=== PATIENT | female | born 1940 | race African-American/Black ===

== ENCOUNTER 2020-12-25 23:45 | Inpatient (IN) ==
[2020-12-26] MEDS ORDERED: 0.9 % Sodium Chloride 1,000 ML IVC ONE ×2 (00:13→03:48)
[2020-12-26 00:43] LABS: Basophils % 0.3 %; Eosinophils # 0.1 K/mcL (0.0-0.6); Eosinophils % 0.6 %; Hematocrit 37.2 % (35.3-44.9); Immature Granulocytes % 0.5 % (0-4); Lymphocytes # 1.7 K/mcL (0.6-4.6); Lymphocytes % 12.6 %; Mean Corpuscular HGB Conc 32.3 g/dL (31.6-35.5); Mean Corpuscular Hemoglobin 25.5 pg (28.0-33.3); Monocytes # 0.6 K/mcL (0.0-1.3); Monocytes % 4.8 %; Neutrophils # 10.8 K/mcL (1.6-8.9); Platelet Count 317 K/mcL (140-400); Red Blood Count 4.71 M/mcL (3.82-4.97); Red Cell Distribution Width 15.9 % (11.5-14.5); Segmented Neutrophils % 81.2 %; White Blood Count 13.3 K/mcL (4.3-11.1)
[2020-12-26 00:53] LABS: INR 1.5; Prothrombin Time 16.8 Seconds (9.4-12.1)
[2020-12-26 00:55] LABS: Activated Partial Thrombo Time 25.6 Seconds (26.0-36.0)
[2020-12-26 01:14] LABS: Albumin 3.3 g/dL (3.5-5.7); Albumin/Globulin Ratio 0.8 (1.1-2.2); Bilirubin,Direct 0.3 mg/dL (0.0-0.2); Bilirubin,Indirect 0.4 mg/dL (0.0-1.0); Bilirubin,Total 0.7 mg/dL (0.3-1.0); Globulin 4.1 g/dL (2.4-3.5); Potassium 2.4 mEq/L (3.5-5.1); Total Protein 7.4 g/dL (6.4-8.9); Troponin I 0.51 ng/mL (< 0.04)
[2020-12-26] MEDS ORDERED: Azithromycin 250 MG TABLET PO SCH (01:15)
[2020-12-26] MEDS ORDERED: Potassium Chloride Elixir 20 MEQ/15 ML UDC PO ONE ×3 (01:22→15:53)
[2020-12-26] MEDS ORDERED: Ringers Solution, Lactated 1,000 ML IVC ONE (01:57)
[2020-12-26] MEDS ORDERED: Piperacillin/Tazobactam 3.375 GM in Water for inj. (sterile) 20 ML IVP ONE (02:06)
[2020-12-26] MEDS ORDERED: Vancomycin 1,250 MG 1,250 MG/262.5 ML IV.SOLN IVPB ONE (02:06)
[2020-12-26] MEDS ORDERED: *HR* Heparin 5,000 UNIT/ML VIAL IVP ONE (02:34)
[2020-12-26] MEDS ORDERED: *HR* Heparin 5,000 UNIT/ML VIAL IVP PRN ×2 (02:34)
[2020-12-26 02:35] LABS: Bilirubin,Urine Negative (Negative); Blood,Urine Small (Negative); Clarity,Urine Turbid (Clear); Color,Urine Yellow (Yellow); Glucose,Urine (UA) Normal (Normal); Hyaline Casts,Urine Few per lpf (None Seen); Ketones,Urine Negative (Negative); Leukocyte Esterase,Urine Small (Negative); Mucus,Urine Few per lpf (None-Few); Nitrite,Urine Negative (Negative); PH,Urine 5.5 pH Units (5.0-8.0); Protein,Urine Trace mg/dL (Neg-Trace); Specific Gravity,Urine 1.013 (1.010-1.025); Squamous Epithelial Cell,Urine Few per hpf (None-Few); Urobilinogen,Urine Normal (Normal)
[2020-12-26] MEDS: Heparin 25,000UNIT/250ML 1/2NS 25,000 UNIT/250 ML IV.SOLN IVC SCH (03:29)
[2020-12-26 03:47] LABS: INR 1.5; Prothrombin Time 17.1 Seconds (9.4-12.1)
[2020-12-26 03:50] LABS: Heparin anti-factor XA UFH < 0.04 IU/mL (0.30-0.70)
[2020-12-26 03:52] LABS: Sodium, Urine 60.2 mEq/L
[2020-12-26] MEDS ORDERED: Perflutren Lipid Microsphere 1.3 ML in 0.9 % Sodium Chloride 8.7 ML IVP PRN (06:19)
[2020-12-26] MEDS ORDERED: Ringers Solution, Lactated 1,000 ML ONE (06:25)
[2020-12-26] MEDS: Ringers Solution, Lactated 1,000 ML IVC SCH ×4 (06:31→22:35)
[2020-12-26 06:42] LABS: Calcium 8.2 mg/dL (8.6-10.3); Potassium 2.9 mEq/L (3.5-5.1)
[2020-12-26] MEDS ORDERED: Potassium Chloride 40 MEQ, Lidocaine 1% 2 ML in 0.9 % Sodium Chloride 500 ML IVPB ONE (06:43)
[2020-12-26] MEDS: Albumin Human 5% 12.5 GM/250 ML IV.SOLN IVC SCH ×2 (07:51→11:43)
[2020-12-26] MEDS ORDERED: cefTRIAXone 1,000 MG in Water for inj. (sterile) 10 ML IVP SCH (09:00)
[2020-12-26] MEDS: Norepinephrine 4 MG/254 ML IV.SOLN IVC SCH (11:44)
[2020-12-26] MEDS: Azithromycin 500 MG in 0.9 % Sodium Chloride 250 ML IVPB SCH (14:08)
[2020-12-26 15:11] LABS: VBG Ionized Calcium 0.99 mmol/L (1.15-1.35)
[2020-12-26 15:24] LABS: Calcium 8.3 mg/dL (8.6-10.3); Magnesium 1.5 mg/dL (1.6-2.6); Phosphorous 4.3 mg/dL (2.7-4.5); Potassium 3.5 mEq/L (3.5-5.1)
[2020-12-26] MEDS: Cefepime HCl 1,000 MG in 0.9 % Sodium Chloride Mini Bag 100 ML IVPB SCH (16:55)
[2020-12-26] MEDS ORDERED: Magnesium Sulfate 1 GM/102 ML PIGGYBACK IVPB ONE (17:00)
[2020-12-26] MEDS: Calcium Gluconate 1gm/50mL 1 GM/50 ML BAG IVPB SCH ×3 (17:53→19:19)
[2020-12-26] MEDS ORDERED: Albumin Human 5% 12.5 GM/250 ML IV.SOLN IVPB ONE (22:12)
[2020-12-26] MEDS ORDERED: Albumin Human 5% 12.5 GM/250 ML IV.SOLN ONE (23:41)
[2020-12-27 01:31] LABS: Basophils % 0.3 %; Eosinophils # 0.2 K/mcL (0.0-0.6); Eosinophils % 1.7 %; Hematocrit 31.1 % (35.3-44.9); Immature Granulocytes % 0.3 % (0-4); Lymphocytes # 1.3 K/mcL (0.6-4.6); Lymphocytes % 13.1 %; Mean Corpuscular HGB Conc 31.5 g/dL (31.6-35.5); Mean Corpuscular Volume 82.5 fL (83.0-100.0); Mean Platelet Volume 11.2 fL (9.4-12.4); Monocytes # 0.5 K/mcL (0.0-1.3); Monocytes % 5.7 %; Neutrophils # 7.5 K/mcL (1.6-8.9); Platelet Count 228 K/mcL (140-400); Red Blood Count 3.77 M/mcL (3.82-4.97); Red Cell Distribution Width 16.5 % (11.5-14.5); Segmented Neutrophils % 78.9 %; White Blood Count 9.5 K/mcL (4.3-11.1)
[2020-12-27 01:35] LABS: Hemoglobin 9.8 g/dL (11.5-15.4)
[2020-12-27 01:37] LABS: VBG Ionized Calcium 1.25 mmol/L (1.15-1.35)
[2020-12-27] MEDS ORDERED: Albumin Human 5% 12.5 GM/250 ML IV.SOLN IVPB ONE (02:20)
[2020-12-27 02:46] LABS: Albumin 3.4 g/dL (3.5-5.7); Albumin/Globulin Ratio 1.1 (1.1-2.2); Bilirubin,Total 0.7 mg/dL (0.3-1.0); Calcium 9.3 mg/dL (8.6-10.3); Magnesium 2.1 mg/dL (1.6-2.6); Phosphorous 3.8 mg/dL (2.7-4.5); Total Protein 6.4 g/dL (6.4-8.9)
[2020-12-27 02:54] LABS: Thyroid Stimulating Hormone 0.022 mcIU/mL (0.340-5.600)
[2020-12-27] MEDS ORDERED: Ringers Solution, Lactated 1,000 ML IVC SCH (03:30)
[2020-12-27] MEDS: Norepinephrine 4 MG/254 ML IV.SOLN IVC SCH (04:31)
[2020-12-27] MEDS: Ringers Solution, Lactated 1,000 ML IVC SCH (04:31)
[2020-12-27] MEDS: Heparin 25,000UNIT/250ML 1/2NS 25,000 UNIT/250 ML IV.SOLN IVC SCH ×2 (04:31→13:01)
[2020-12-27] MEDS: Cefepime HCl 1,000 MG in 0.9 % Sodium Chloride Mini Bag 100 ML IVPB SCH ×2 (05:28→17:57)
[2020-12-27] MEDS: Azithromycin 500 MG in 0.9 % Sodium Chloride 250 ML IVPB SCH (06:07)
[2020-12-27] MEDS: Aspirin Enteric Coated 81 MG Tablet PO SCH (09:49)
[2020-12-27] MEDS ORDERED: Sodium Bicarbonate 150 MEQ in Water for inj. (sterile) 1,000 ML IVC SCH (10:00)
[2020-12-27] MEDS: Sodium Bicarbonate 150 MEQ in Water for inj. (sterile) 1,000 ML IVC SCH (16:10)
[2020-12-28] MEDS: Sodium Bicarbonate 150 MEQ in Water for inj. (sterile) 1,000 ML IVC SCH (01:12)
[2020-12-28 03:37] LABS: Basophils % 0.4 %; Eosinophils # 0.3 K/mcL (0.0-0.6); Eosinophils % 3.2 %; Hematocrit 30.1 % (35.3-44.9); Hemoglobin 9.7 g/dL (11.5-15.4); Immature Granulocytes % 0.4 % (0-4); Lymphocytes # 2.1 K/mcL (0.6-4.6); Mean Corpuscular HGB Conc 32.2 g/dL (31.6-35.5); Mean Corpuscular Hemoglobin 26.1 pg (28.0-33.3); Mean Corpuscular Volume 81.1 fL (83.0-100.0); Mean Platelet Volume 10.3 fL (9.4-12.4); Monocytes # 0.6 K/mcL (0.0-1.3); Monocytes % 6.7 %; Neutrophils # 5.3 K/mcL (1.6-8.9); Platelet Count 240 K/mcL (140-400); Red Blood Count 3.71 M/mcL (3.82-4.97); Red Cell Distribution Width 16.6 % (11.5-14.5); Segmented Neutrophils % 64.3 %; White Blood Count 8.3 K/mcL (4.3-11.1)
[2020-12-28 03:55] LABS: BUN/Creatinine Ratio 61 (6-26); Blood Urea Nitrogen 57 mg/dL (8-23); Calcium 9.2 mg/dL (8.6-10.3); Carbon Dioxide 29 mEq/L (23-29); Chloride 109 mEq/L (98-107); Glucose 94 mg/dL (70-105); Osmolality,Calculated 312 (280-300); Sodium 143 mEq/L (136-145); eGFR For African Americans > 60 (> 60); eGFR For Non-African Americans 58 (> 60)
[2020-12-28] MEDS: Cefepime HCl 1,000 MG in 0.9 % Sodium Chloride Mini Bag 100 ML IVPB SCH (05:31)
[2020-12-28] MEDS: Aspirin Enteric Coated 81 MG Tablet PO SCH (07:27)
[2020-12-28] MEDS: Azithromycin 250 MG TABLET PO SCH (07:28)
[2020-12-28] MEDS: Metoprolol XL (24 HR) Succ 25 MG TAB.ER.24H PO SCH (10:29)
[2020-12-28] MEDS: Cefdinir 300 MG CAPSULE PO SCH (21:48)
[2020-12-28] MEDS: Apixaban 5 MG TABLET PO SCH (21:48)
[2020-12-29] MEDS: Aspirin Enteric Coated 81 MG Tablet PO SCH (08:17)
[2020-12-29] MEDS: Apixaban 5 MG TABLET PO SCH ×2 (08:18→20:45)
[2020-12-29] MEDS: Azithromycin 250 MG TABLET PO SCH (08:18)
[2020-12-29] MEDS: Metoprolol XL (24 HR) Succ 25 MG TAB.ER.24H PO SCH (08:18)
[2020-12-29] MEDS: Cefdinir 300 MG CAPSULE PO SCH ×2 (08:19→20:45)
[2020-12-30 02:50] LABS: Hematocrit 33.1 % (35.3-44.9); Hemoglobin 10.3 g/dL (11.5-15.4); Mean Corpuscular HGB Conc 31.1 g/dL (31.6-35.5); Mean Corpuscular Volume 83.6 fL (83.0-100.0); Mean Platelet Volume 10.4 fL (9.4-12.4); Platelet Count 248 K/mcL (140-400); Red Blood Count 3.96 M/mcL (3.82-4.97); Red Cell Distribution Width 16.9 % (11.5-14.5); White Blood Count 9.8 K/mcL (4.3-11.1)
[2020-12-30 03:10] LABS: BUN/Creatinine Ratio 63 (6-26); Blood Urea Nitrogen 45 mg/dL (8-23); Calcium 9.8 mg/dL (8.6-10.3); Carbon Dioxide 30 mEq/L (23-29); Chloride 103 mEq/L (98-107); Glucose 114 mg/dL (70-105); Osmolality,Calculated 302 (280-300); Potassium 3.8 mEq/L (3.5-5.1); Sodium 140 mEq/L (136-145); eGFR For African Americans > 60 (> 60); eGFR For Non-African Americans > 60 (> 60)
[2020-12-30] MEDS: Metoprolol XL (24 HR) Succ 25 MG TAB.ER.24H PO SCH (09:19)
[2020-12-30] MEDS: Cefdinir 300 MG CAPSULE PO SCH ×2 (09:20→19:57)
[2020-12-30] MEDS: Apixaban 5 MG TABLET PO SCH ×2 (09:20→19:57)
[2020-12-30] MEDS: Azithromycin 250 MG TABLET PO SCH (09:20)
[2020-12-30] MEDS: Aspirin Enteric Coated 81 MG Tablet PO SCH (09:20)
[2020-12-31] MEDS: Metoprolol XL (24 HR) Succ 25 MG TAB.ER.24H PO SCH (09:49)
[2020-12-31] MEDS: Aspirin Enteric Coated 81 MG Tablet PO SCH (09:49)
[2020-12-31] MEDS: Apixaban 5 MG TABLET PO SCH ×2 (09:50→20:47)
[2020-12-31] MEDS: Cefdinir 300 MG CAPSULE PO SCH ×2 (09:50→20:47)
[2021-01-01 06:57] VITALS: BP 153/81
[2021-01-01] MEDS: Aspirin Enteric Coated 81 MG Tablet PO SCH (07:40)
[2021-01-01] MEDS: Apixaban 5 MG TABLET PO SCH (07:40)
[2021-01-01] MEDS: Cefdinir 300 MG CAPSULE PO SCH (07:40)
[2021-01-01] MEDS: Metoprolol XL (24 HR) Succ 25 MG TAB.ER.24H PO SCH (07:40)
== END 2021-01-01 11:26 | disposition home health service (06) | DRG 871 ==
LOC: ICNU 23:45 → EMEROOARM 23:45 → ICNU 12-26 06:43 → SUATTDRO 12-26 19:41 → 2ANU 12-28 10:15
PROVIDERS: ADMIT Family Medicine; ATTEND Family Medicine

== ENCOUNTER 2021-03-25 22:17 | Inpatient (IN) ==
[2021-03-25 23:54] LABS: Mean Corpuscular Volume 71.4 fL (83.0-100.0)
[2021-03-25 23:55] LABS: Basophils % 0.1 %; Hematocrit 16.5 % (35.3-44.9); Immature Granulocytes % 0.4 % (0-4); Lymphocytes # 1.1 K/mcL (0.6-4.6); Mean Corpuscular HGB Conc 26.7 g/dL (31.6-35.5); Mean Platelet Volume 10.8 fL (9.4-12.4); Monocytes # 0.5 K/mcL (0.0-1.3); Monocytes % 5.4 %; Nucleated Red Blood Cells 1.4 /100 WBC (0); Platelet Count 348 K/mcL (140-400); Red Blood Count 2.31 M/mcL (3.82-4.97); Red Cell Distribution Width 21.8 % (11.5-14.5); Segmented Neutrophils % 82.1 %; White Blood Count 9.2 K/mcL (4.3-11.1)
[2021-03-25 23:56] LABS: Neutrophils # 7.6 K/mcL (1.6-8.9)
[2021-03-25 23:58] LABS: Hemoglobin 4.4 g/dL (11.5-15.4)
[2021-03-26 00:13] LABS: Calcium 9.9 mg/dL (8.6-10.3); Potassium 4.4 mEq/L (3.5-5.1)
[2021-03-26 00:22] LABS: Anisocytosis 2+ (Not Present); Hypochromasia Present (Not Present); Polychromasia 1+ (Not Present); Target Cells 1+ (Not Present)
[2021-03-26 00:23] LABS: Platelet Estimate Normal (Normal)
[2021-03-26] MEDS ORDERED: Pantoprazole 80 MG in 0.9 % Sodium Chloride 50 ML IVPB ONE (00:51)
[2021-03-26] MEDS ORDERED: Acetaminophen 325 MG TABLET PO PRN (00:52)
[2021-03-26] MEDS ORDERED: Ondansetron 4 MG/2 ML VIAL IVP PRN (00:52)
[2021-03-26] MEDS ORDERED: Naloxone 0.4 MG/ML INJ IVP PRN (00:52)
[2021-03-26] MEDS ORDERED: 0.9 % Sodium Chloride 250 ML ONE ×3 (01:24→17:13)
[2021-03-26 04:53] LABS: Bacteria,Urine Moderate per hpf (None-Few); Bilirubin,Urine Negative (Negative); Blood,Urine Negative (Negative); Clarity,Urine Turbid (Clear); Color,Urine Yellow (Yellow); Glucose,Urine (UA) Normal (Normal); Hyaline Casts,Urine Few per lpf (None Seen); Ketones,Urine Negative (Negative); Leukocyte Esterase,Urine Large (Negative); Mucus,Urine Few per lpf (None-Few); Nitrite,Urine Positive (Negative); PH,Urine 5.5 pH Units (5.0-8.0); Protein,Urine 30 mg/dL (Neg-Trace); RBC,Urine 0-3 per hpf (0-3); Squamous Epithelial Cell,Urine Moderate per hpf (None-Few); Urobilinogen,Urine Normal (Normal)
[2021-03-26] MEDS: Pantoprazole 40 MG VIAL IVP SCH ×2 (06:10→17:15)
[2021-03-26 06:32] LABS: Nucleated Red Blood Cells 0.4 /100 WBC (0)
[2021-03-26 06:34] LABS: Basophils % 0.1 %; Hematocrit 21.2 % (35.3-44.9); Immature Granulocytes % 0.4 % (0-4); Immature Reticulocyte % 5.1 % (11.0-38.0); Lymphocytes # 1.3 K/mcL (0.6-4.6); Lymphocytes % 8.4 %; Mean Corpuscular HGB Conc 28.3 g/dL (31.6-35.5); Mean Corpuscular Hemoglobin 20.5 pg (28.0-33.3); Mean Corpuscular Volume 72.6 fL (83.0-100.0); Mean Platelet Volume 11.4 fL (9.4-12.4); Monocytes % 6.2 %; Neutrophils # 13.5 K/mcL (1.6-8.9); Platelet Count 352 K/mcL (140-400); Red Blood Count 2.92 M/mcL (3.82-4.97); Red Cell Distribution Width 22.2 % (11.5-14.5); Retculocyte # 0.06 M/mcL (0.05-0.10); Reticulocyte % 2.1 % (1.6-2.8); Segmented Neutrophils % 84.9 %; White Blood Count 15.9 K/mcL (4.3-11.1)
[2021-03-26 06:43] LABS: INR 4.2
[2021-03-26] MEDS ORDERED: Ipratropium/Albuterol Neb 3 ML IH PRN (06:53)
[2021-03-26 06:57] LABS: Albumin 3.3 g/dL (3.5-5.7); Albumin/Globulin Ratio 0.9 (1.1-2.2); Bilirubin,Total 1.6 mg/dL (0.3-1.0); Calcium 10.4 mg/dL (8.6-10.3); Globulin 3.7 g/dL (2.4-3.5); Magnesium 1.9 mg/dL (1.6-2.6); Potassium 4.3 mEq/L (3.5-5.1)
[2021-03-26 07:05] LABS: Thyroid Stimulating Hormone 0.53 mcIU/mL (0.340-5.600)
[2021-03-26 07:07] LABS: Anisocytosis 2+ (Not Present); Hypochromasia Present (Not Present); Platelet Estimate Normal (Normal); Poikilocytosis 1+ (Not Present); Target Cells 1+ (Not Present)
[2021-03-26 08:00] LABS: Troponin I 0.21 ng/mL (< 0.04)
[2021-03-26] MEDS ORDERED: Iron Sucrose Complex 400 MG in 0.9 % Sodium Chloride 250 ML IVPB ONE (08:50)
[2021-03-26] MEDS ORDERED: *HR* Phytonadione 10 MG/ML AMPUL SQ ONE (08:51)
[2021-03-26] MEDS ORDERED: cefTRIAXone 1,000 MG in 0.9 % Sodium Chloride Mini Bag 100 ML IVPB SCH (09:00)
[2021-03-26] MEDS ORDERED: Piperacillin/Tazobactam 3.375 GM in 0.9 % Sodium Chloride Mini Bag 100 ML IVPB SCH (09:00)
[2021-03-26] MEDS: Azithromycin 500 MG in 0.9 % Sodium Chloride 250 ML IVPB SCH (09:05)
[2021-03-26 12:02] LABS: Adenovirus DETECTED (Not Detect); Bordetella Pertussis Not Detected (Not Detect); Chlamydophila pneumoniae Not Detected (Not Detect); Coronavirus 229E Not Detected (Not Detect); Coronavirus HKU1 Not Detected (Not Detect); Coronavirus NL63 Not Detected (Not Detect); Coronavirus OC43 Not Detected (Not Detect); Human Metapneumovirus Not Detected (Not Detect); Human Rhinovirus/Enterovirus Not Detected (Not Detect); Influenza A Subtype 2009 H1 Not Detected (Not Detect); Influenza B Not Detected (Not Detect); Mycoplasma pneumoniae Not Detected (Not Detect); Parainfluenza Virus 1 Not Detected (Not Detect); Parainfluenza Virus 2 Not Detected (Not Detect); Parainfluenza Virus 3 Not Detected (Not Detect); Parainfluenza Virus 4 Not Detected (Not Detect); Respiratory Syncytial Virus Not Detected (Not Detect); SARS-CoV-2 Not Detected (Not Detect)
[2021-03-26] MEDS: Piperacillin/Tazobactam 3.375 GM in 0.9 % Sodium Chloride Mini Bag 100 ML IVPB SCH ×2 (13:04→20:03)
[2021-03-26 15:05] LABS: Hemoglobin 6.1 g/dL (11.5-15.4)
[2021-03-26] MEDS ORDERED: SODIUM CHLORIDE/NAHCO3/KCL/PEG 4,000 ML SOLN.RECON PO ONE (17:00)
[2021-03-26] MEDS ORDERED: Piperacillin/Tazobactam 3.375 GM VIAL ONE (19:49)
[2021-03-26 22:08] LABS: Hematocrit 24.8 % (35.3-44.9); Hemoglobin 7.4 g/dL (11.5-15.4)
[2021-03-27 02:42] LABS: Hematocrit 23.7 % (35.3-44.9); Hemoglobin 7.2 g/dL (11.5-15.4)
[2021-03-27 02:53] LABS: INR 3.5; Prothrombin Time 39.1 Seconds (9.4-12.1)
[2021-03-27 03:04] LABS: Alanine Aminotransferase 10 Units/L (7-52); Albumin/Globulin Ratio 0.9 (1.1-2.2); Alkaline Phosphatase 84 Units/L (34-104); Aspartate Amino Transferase 12 Units/L (13-39); BUN/Creatinine Ratio 24 (6-26); Bilirubin,Total 1.7 mg/dL (0.3-1.0); Blood Urea Nitrogen 23 mg/dL (8-23); Calcium 10.1 mg/dL (8.6-10.3); Carbon Dioxide 22 mEq/L (23-29); Chloride 115 mEq/L (98-107); Globulin 3.5 g/dL (2.4-3.5); Glucose 93 mg/dL (70-105); Osmolality,Calculated 297 (280-300); Potassium 3.8 mEq/L (3.5-5.1); Sodium 142 mEq/L (136-145); Total Protein 6.5 g/dL (6.4-8.9); eGFR For African Americans > 60 (> 60); eGFR For Non-African Americans 57 (> 60)
[2021-03-27] MEDS: Pantoprazole 40 MG VIAL IVP SCH ×2 (04:59→17:28)
[2021-03-27] MEDS: Piperacillin/Tazobactam 3.375 GM in 0.9 % Sodium Chloride Mini Bag 100 ML IVPB SCH ×3 (05:00→20:55)
[2021-03-27] MEDS ORDERED: Furosemide 40 MG TABLET PO PRN (07:57)
[2021-03-27] MEDS: Aspirin Enteric Coated 81 MG Tablet PO SCH (08:27)
[2021-03-27] MEDS: Azithromycin 500 MG in 0.9 % Sodium Chloride 250 ML IVPB SCH (08:27)
[2021-03-27] MEDS ORDERED: 0.9 % Sodium Chloride 250 ML ONE (10:05)
[2021-03-27 11:22] LABS: Basophils % 0.3 %; Monocytes % 6.4 %; Red Cell Distribution Width 21.7 % (11.5-14.5)
[2021-03-27 11:23] LABS: Eosinophils # 0.1 K/mcL (0.0-0.6); Eosinophils % 0.7 %; Hematocrit 24.6 % (35.3-44.9); Hemoglobin 7.4 g/dL (11.5-15.4); Immature Granulocytes % 0.5 % (0-4); Lymphocytes # 1.4 K/mcL (0.6-4.6); Lymphocytes % 11.3 %; Mean Corpuscular HGB Conc 30.1 g/dL (31.6-35.5); Mean Corpuscular Hemoglobin 23.1 pg (28.0-33.3); Mean Corpuscular Volume 76.9 fL (83.0-100.0); Mean Platelet Volume 10.9 fL (9.4-12.4); Monocytes # 0.8 K/mcL (0.0-1.3); Neutrophils # 9.9 K/mcL (1.6-8.9); Nucleated Red Blood Cells 4.3 /100 WBC (0); Platelet Count 300 K/mcL (140-400); Segmented Neutrophils % 80.8 %; White Blood Count 12.2 K/mcL (4.3-11.1)
[2021-03-27] MEDS ORDERED: *HR* Phytonadione 10 MG/ML AMPUL SQ ONE (11:29)
[2021-03-27 13:27] LABS: Hypochromasia Present (Not Present); Platelet Estimate Normal (Normal)
[2021-03-27 13:28] LABS: Anisocytosis 2+ (Not Present); Poikilocytosis 1+ (Not Present); Polychromasia 1+ (Not Present); Target Cells 1+ (Not Present)
[2021-03-27] MEDS ORDERED: SODIUM CHLORIDE/NAHCO3/KCL/PEG 4,000 ML SOLN.RECON PO ONE (17:00)
[2021-03-27 17:49] LABS: Hematocrit 28.4 % (35.3-44.9); Hemoglobin 8.5 g/dL (11.5-15.4)
[2021-03-28] MEDS: Piperacillin/Tazobactam 3.375 GM in 0.9 % Sodium Chloride Mini Bag 100 ML IVPB SCH ×3 (05:05→20:18)
[2021-03-28] MEDS: Pantoprazole 40 MG VIAL IVP SCH ×2 (05:05→18:44)
[2021-03-28 05:26] LABS: Basophils # 0.1 K/mcL (0.0-0.2); Basophils % 0.5 %; Eosinophils # 0.2 K/mcL (0.0-0.6); Eosinophils % 1.7 %; Hematocrit 28.3 % (35.3-44.9); Hemoglobin 8.2 g/dL (11.5-15.4); Immature Granulocytes % 0.5 % (0-4); Lymphocytes # 1.5 K/mcL (0.6-4.6); Lymphocytes % 15.7 %; Mean Corpuscular Hemoglobin 23.2 pg (28.0-33.3); Mean Corpuscular Volume 79.9 fL (83.0-100.0); Mean Platelet Volume 10.4 fL (9.4-12.4); Monocytes # 0.7 K/mcL (0.0-1.3); Monocytes % 7.1 %; Neutrophils # 7.2 K/mcL (1.6-8.9); Nucleated Red Blood Cells 3.4 /100 WBC (0); Platelet Count 293 K/mcL (140-400); Red Blood Count 3.54 M/mcL (3.82-4.97); Red Cell Distribution Width 22.1 % (11.5-14.5); Segmented Neutrophils % 74.5 %; White Blood Count 9.7 K/mcL (4.3-11.1)
[2021-03-28 05:47] LABS: Alanine Aminotransferase 9 Units/L (7-52); Albumin/Globulin Ratio 0.8 (1.1-2.2); Alkaline Phosphatase 88 Units/L (34-104); Aspartate Amino Transferase 10 Units/L (13-39); BUN/Creatinine Ratio 21 (6-26); Bilirubin,Total 1.4 mg/dL (0.3-1.0); Blood Urea Nitrogen 16 mg/dL (8-23); Carbon Dioxide 21 mEq/L (23-29); Chloride 112 mEq/L (98-107); Globulin 3.6 g/dL (2.4-3.5); Glucose 90 mg/dL (70-105); Osmolality,Calculated 287 (280-300); Potassium 3.7 mEq/L (3.5-5.1); Sodium 138 mEq/L (136-145); Total Protein 6.6 g/dL (6.4-8.9); eGFR For African Americans > 60 (> 60); eGFR For Non-African Americans > 60 (> 60)
[2021-03-28] MEDS ORDERED: Lidocaine -MPF 2% 5 ML VIAL ONE (07:28)
[2021-03-28] MEDS: Azithromycin 500 MG in 0.9 % Sodium Chloride 250 ML IVPB SCH (09:00)
[2021-03-28] MEDS ORDERED: *HR* Etomidate 40 MG/20 ML VIAL IVP ONE (09:02)
[2021-03-28] MEDS: Aspirin Enteric Coated 81 MG Tablet PO SCH (09:03)
[2021-03-28] MEDS: *HR* Heparin 5,000 UNIT/ML VIAL SQ SCH (18:46)
[2021-03-29 04:23] LABS: Basophils % 0.3 %; Eosinophils # 0.2 K/mcL (0.0-0.6); Eosinophils % 2.1 %; Hematocrit 29.1 % (35.3-44.9); Hemoglobin 8.6 g/dL (11.5-15.4); Immature Granulocytes % 0.4 % (0-4); Lymphocytes # 1.6 K/mcL (0.6-4.6); Lymphocytes % 17.2 %; Mean Corpuscular HGB Conc 29.6 g/dL (31.6-35.5); Mean Corpuscular Hemoglobin 23.6 pg (28.0-33.3); Mean Corpuscular Volume 79.9 fL (83.0-100.0); Mean Platelet Volume 9.9 fL (9.4-12.4); Monocytes # 0.6 K/mcL (0.0-1.3); Monocytes % 6.6 %; Neutrophils # 6.7 K/mcL (1.6-8.9); Nucleated Red Blood Cells 3.2 /100 WBC (0); Platelet Count 298 K/mcL (140-400); Red Blood Count 3.64 M/mcL (3.82-4.97); Red Cell Distribution Width 22.9 % (11.5-14.5); Segmented Neutrophils % 73.4 %; White Blood Count 9.1 K/mcL (4.3-11.1)
[2021-03-29 04:35] LABS: INR 1.5; Prothrombin Time 17.5 Seconds (9.4-12.1)
[2021-03-29 04:42] LABS: BUN/Creatinine Ratio 17 (6-26); Blood Urea Nitrogen 12 mg/dL (8-23); Calcium 10.1 mg/dL (8.6-10.3); Carbon Dioxide 21 mEq/L (23-29); Chloride 115 mEq/L (98-107); Glucose 111 mg/dL (70-105); Osmolality,Calculated 294 (280-300); Potassium 3.9 mEq/L (3.5-5.1); Sodium 142 mEq/L (136-145); eGFR For African Americans > 60 (> 60); eGFR For Non-African Americans > 60 (> 60)
[2021-03-29] MEDS: Piperacillin/Tazobactam 3.375 GM in 0.9 % Sodium Chloride Mini Bag 100 ML IVPB SCH ×3 (05:11→19:58)
[2021-03-29] MEDS: *HR* Heparin 5,000 UNIT/ML VIAL SQ SCH ×2 (05:12→18:05)
[2021-03-29] MEDS: Pantoprazole 40 MG VIAL IVP SCH ×2 (05:12→18:05)
[2021-03-29] MEDS: Azithromycin 250 MG TABLET PO SCH (10:14)
[2021-03-29] MEDS: Aspirin Enteric Coated 81 MG Tablet PO SCH (10:14)
[2021-03-30] MEDS: Piperacillin/Tazobactam 3.375 GM in 0.9 % Sodium Chloride Mini Bag 100 ML IVPB SCH (05:12)
[2021-03-30] MEDS: *HR* Heparin 5,000 UNIT/ML VIAL SQ SCH ×2 (05:12→16:33)
[2021-03-30] MEDS: Pantoprazole 40 MG VIAL IVP SCH ×2 (05:12→16:33)
[2021-03-30] MEDS: Aspirin Enteric Coated 81 MG Tablet PO SCH (09:01)
[2021-03-30] MEDS: Azithromycin 250 MG TABLET PO SCH (09:01)
[2021-03-31] MEDS: Pantoprazole 40 MG VIAL IVP SCH (05:34)
[2021-03-31] MEDS: *HR* Heparin 5,000 UNIT/ML VIAL SQ SCH ×2 (05:34→17:30)
[2021-03-31] MEDS: Aspirin Enteric Coated 81 MG Tablet PO SCH (09:29)
[2021-03-31] MEDS: Azithromycin 250 MG TABLET PO SCH (09:29)
[2021-04-01] MEDS: *HR* Heparin 5,000 UNIT/ML VIAL SQ SCH ×2 (05:35→18:48)
[2021-04-01] MEDS: Aspirin Enteric Coated 81 MG Tablet PO SCH (07:47)
[2021-04-01 08:16] LABS: Hemoglobin 9.2 g/dL (11.5-15.4)
[2021-04-01 08:18] LABS: Hematocrit 31.8 % (35.3-44.9); Mean Corpuscular HGB Conc 28.9 g/dL (31.6-35.5); Mean Corpuscular Hemoglobin 24.5 pg (28.0-33.3); Mean Corpuscular Volume 84.6 fL (83.0-100.0); Mean Platelet Volume 10.7 fL (9.4-12.4); Nucleated Red Blood Cells 0.2 /100 WBC (0); Platelet Count 301 K/mcL (140-400); Red Blood Count 3.76 M/mcL (3.82-4.97); Red Cell Distribution Width 25.7 % (11.5-14.5); White Blood Count 9.8 K/mcL (4.3-11.1)
[2021-04-01 08:26] LABS: BUN/Creatinine Ratio 9 (6-26); Blood Urea Nitrogen 6 mg/dL (8-23); Calcium 10.5 mg/dL (8.6-10.3); Carbon Dioxide 24 mEq/L (23-29); Chloride 111 mEq/L (98-107); Glucose 91 mg/dL (70-105); Osmolality,Calculated 291 (280-300); Potassium 3.9 mEq/L (3.5-5.1); Sodium 142 mEq/L (136-145); eGFR For African Americans > 60 (> 60); eGFR For Non-African Americans > 60 (> 60)
[2021-04-01 09:15] LABS: Eosinophils # 0.2 K/mcL (0.0-0.6); Lymphocytes # 2.7 K/mcL (0.6-4.6); Monocytes # 0.8 K/mcL (0.0-1.3); Neutrophils # 6.1 K/mcL (1.6-8.9); Reactive Lymphocytes Present (Not Present)
[2021-04-01 09:16] LABS: Anisocytosis 1+ (Not Present); Hypochromasia Present (Not Present); Platelet Estimate Normal (Normal)
[2021-04-01 12:26] VITALS: BP 145/87; PULSE 92; TEMP 97.4; O2SAT 93
[2021-04-01 14:55] LABS: Adenovirus Not Detected (Not Detect); Bordetella Pertussis Not Detected (Not Detect); Chlamydophila pneumoniae Not Detected (Not Detect); Coronavirus 229E Not Detected (Not Detect); Coronavirus HKU1 Not Detected (Not Detect); Coronavirus NL63 Not Detected (Not Detect); Coronavirus OC43 Not Detected (Not Detect); Human Metapneumovirus Not Detected (Not Detect); Human Rhinovirus/Enterovirus Not Detected (Not Detect); Influenza A Subtype 2009 H1 Not Detected (Not Detect); Influenza B Not Detected (Not Detect); Mycoplasma pneumoniae Not Detected (Not Detect); Parainfluenza Virus 1 Not Detected (Not Detect); Parainfluenza Virus 2 Not Detected (Not Detect); Parainfluenza Virus 3 Not Detected (Not Detect); Parainfluenza Virus 4 Not Detected (Not Detect); Respiratory Syncytial Virus Not Detected (Not Detect); SARS-CoV-2 Not Detected (Not Detect)
== END 2021-04-01 19:08 | DRG 811 ==
LOC: EMEROOARM 22:17 → CDU 22:17 → SUATTDRO 03-26 01:05 → CDU 03-26 02:45 → SUATTDRO 03-27 14:56 → 2ANU 03-28 16:24
PROVIDERS: ADMIT Internal Medicine; ATTEND Internal Medicine